=== PATIENT | female | born 1950 | race Caucasian/White ===

== ENCOUNTER → 2020-08-21 | Day surgery (SDC) | payer OTHER ==
[~2020-08-21] VITALS: Ht 170.2 cm; Wt 78.5 kg
[~2020-08-21] MED LIST: NORCO 5-325 TA1 EACH PO; PERCOCET 5-3251 EACH PO; PRINIVIL20 MG PO; SIMVASTATIN20 MG PO; TRAZODONE HCL150 MG PO
[2020-08-21 08:30] LABS: HCT 36.4 % (37.0-47.0); HGB 12.2 g/dl (12.5-16.0); MCHC 33.5 g/dL (32.0-36.0); MCV 92.4 fL (78.0-100.0); MPV 10.1 fL (6.0-9.5); RBC 3.94 M/uL (4.20-5.40); RDW 12.7 % (11.5-14.0); WBC 3.4 K/uL (4.0-10.5)
[2020-08-21 09:23] LABS: ALBUMIN 3.7 g/dL (3.4-5.0); BILIRUBIN - TOTAL 0.5 mg/dL (0.2-1.0); CREATININE 0.88 mg/dL (0.51-0.95); GLOBULIN (CALCULATION) 3.6 g/dL; POTASSIUM 4.3 mmol/L (3.5-5.1); TOTAL PROTEIN 7.3 g/dL (6.4-8.2)
== END | disposition home or self-care (01) ==
LOC: FAS 07:26
PROVIDERS: Orthopaedic Surgery
DX: M65.331 Trigger finger, right middle finger (principal); M65.332 Trigger finger, left middle finger; M65.341 Trigger finger, right ring finger; M65.841 Other synovitis and tenosynovitis, right hand; M65.842 Other synovitis and tenosynovitis, left hand; I10 Essential (primary) hypertension; K21.9 Gastro-esophageal reflux disease without esophagitis; M19.90 Unspecified osteoarthritis, unspecified site; Z87.891 Personal history of nicotine dependence; Z79.899 Other long term (current) drug therapy
CPT/HCPCS: 36415; 80053; 93005; J1100; J1170; J1885; J2250; J2405; J2704; J3010; J7120